=== PATIENT | female | born 2000 | race Asian ===

== ENCOUNTER 2024-01-28 16:53 | Inpatient (IN) ==
[2024-01-28 19:29] LABS: Hematocrit 42.3 % (35-45); Hemoglobin 13.7 g/dL (11.5-14.3); Mean Corpuscular Hemoglobin 25.3 pg (27-33); Mean Corpuscular Hgb Conc 32.4 g/dL (31-36); Mean Corpuscular Volume 77.9 fL (80-97); Mean Platelet Volume 8.5 fL (7.5-11.2); Platelet Count 274 10^3/uL (150-450); Red Blood Count 5.43 10^6/uL (3.63-4.92); Red Cell Distribution Width 13.9 % (12-17); White Blood Count 10.5 10^3/uL (3.8-11.8)
[2024-01-28 20:14] LABS: ABS Basophils 0.3 10^3/uL (0.0-0.1); ABS Eosinophils 0.1 10^3/uL (0.0-0.5); ABS Lymphocytes 1.6 10^3/uL (1.0-4.8); ABS Monocytes 0.4 10^3/uL (0.0-0.9); ABS Neutrophils 8.2 10^3/uL (1.5-7.6); Eosinophil % 0.7 %; Lymphocyte % 15.4 %
[2024-01-28 20:26] LABS: ALT 13 U/L (7-52); AST 15 U/L (13-39); Acetaminophen < 15 mcg/mL; Albumin 4.7 g/dL (3.2-5.2); Albumin/Globulin Ratio 2.4 (1-3); Alcohol, S < 13 mg/dL (<13); Alkaline Phosphatase 36 U/L (35-149); Anion Gap 11 mmol/L (2-16); Blood Urea Nitrogen 14 mg/dL (6-24); CO2 Carbon Dioxide 26 mmol/L (22-32); Calcium 9.5 mg/dL (8.6-10.3); Chloride 103 mmol/L (101-111); Creatine Kinase 215 U/L (10-223); Creatinine, Serum 0.68 mg/dL (0.51-0.95); Glucose 85 mg/dL (70-100); Potassium 3.8 mmol/L (3.5-5.0); Salicylate < 2.50 mg/dL (<30); Sodium 140 mmol/L (135-145); Total Bilirubin 0.3 mg/dL (0.2-1.0); Total Protein 6.7 g/dL (6.4-8.9)
[2024-01-28 20:32] LABS: HCG Pregnancy < 0.60 mIU/mL
[2024-01-28] MEDS ORDERED: Al Hydrox/Mg Hydrox/Simet LIQ 30 ML UDC PO PRN (21:44)
[2024-01-29] MEDS: Vitamin THERAPEUTIC TAB PO SCH (08:16)
[2024-01-29 08:33] LABS: HDL Cholesterol 76.7 mg/dL
== END 2024-01-31 13:55 | disposition home or self-care (01) | DRG 881 ==
LOC: ED 16:53 → EDHOLD 21:00 → BSU 21:26
PROVIDERS: ADMIT Psychiatry & Neurology Psychiatry; ATTEND Student in an Organized Health Care Education/Training Program